=== PATIENT | female | born 2005 | race Caucasian/White ===

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

== ENCOUNTER 2024-12-06 03:38 | Emergency (ER) | payer OTHER, SELFPAY ==
--- NOTE | ~2024-12-06 | XR_ITS ---
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 TECHNIQUE: 2 views of the abdomen. FINDINGS: Bowel gas pain is normal/nonspecific. No dilated loops. Mild to moderate retained fecal material seen throughout the colon with sparing of the rectum. No abnormal soft tissue calcifications. No organomegaly. No large abdominal mass identified. No free intraperitoneal air. No air-fluid levels on the upright radiograph. There is a linear cylindrical foreign body overlying the mid pelvis, of uncertain etiology or significance. It appears to have small sideholes. This could potentially be external to the patient. Lung bases are clear. Osseous structures are normal. XR/XR acute abdomen series IMPRESSION: 1. No acute findings in the abdomen or pelvis. 2. There is a linear cylindrical foreign body overlying the mid pelvis, of uncertain etiology or significance. This could potentially be external to the patient. Recommend correlation. Electronically signed by: Snáchez Milton MD 12/06/2024 10:11 AM JASEN
[2024-12-06 03:44] VITALS: BP 114/68; PULSE 76; RESP 18; TEMP 36.7; O2SAT 99; BMI 24.9
[2024-12-06 04:03] LABS: MANUAL DIFF FLAG NO
[2024-12-06 04:07] LABS: Basophils Percent Auto 0.3 % (0-2); Eosinophils Absolute Auto 0.1 X10*3/uL (0.0-0.4); Eosinophils Percent Auto 1.6 % (0-4); Hematocrit 37.7 % (37.0-47.0); Hemoglobin 12.8 g/dl (12.0-16.0); Imm Gran Abs Auto 0.02 X10*3/uL (0.00-0.03); Imm Gran Pct Auto 0.3 % (0.0-0.4); Lymphocytes Absolute Auto 2.6 X10*3/uL (1.2-4.9); Lymphocytes Percent Auto 34.8 % (20-40); Mean Corpuscular Hemoglobin 30.6 pg (27.0-33.0); Mean Corpuscular Volume 90.2 fL (80.0-98.0); Mean Platelet Volume 9.2 fL (9.4-12.3); Monocytes Absolute Auto 0.5 X10*3/uL (0.1-1.2); Monocytes Percent Auto 6.5 % (2-11); Neutrophils Absolute Auto 4.3 x10*3/uL (2.0-8.3); Neutrophils Percent Auto 56.5 % (45-73); Platelet Count 225 X10*3/uL (160-400); Red Blood Count 4.18 X10*6/uL (4.20-5.50); White Blood Count 7.5 X10*3/uL (4.8-10.8)
[2024-12-06 04:08] LABS: Appearance Urine Clear; Color Urine Yellow; Glucose Urine UA Negative (Negative); Leukocyte Esterase Urine Negative (Negative); Nitrite Urine Negative (Negative); PH 5.5 (5.0-9.0); Specific Gravity - Urine >= 1.030 (1.005-1.025); Urine Blood Negative (Negative); Urine Ketones Negative (Negative); Urine Protein Negative (Neg-Trace)
[2024-12-06 04:12] LABS: UPreg QC Valid YES; Urine Pregnancy NEGATIVE (NEGATIVE)
[2024-12-06 04:28] VITALS: BP 104/61; PULSE 70; RESP 16; TEMP 36.7; O2SAT 99
[2024-12-06 04:28] LABS: Alanine Aminotransferase 7 U/L (0-31); Albumin Level 4.1 g/dL (3.5-5.0); Alkaline Phosphatase 89 U/L (39-117); Anion Gap 12 (12-20); Aspartate Amino Transferase 14 U/L (5-31); Bilirubin Direct 0.2 mg/dL (0.0-0.5); Bilirubin Total 0.7 mg/dL (0.0-1.0); Blood Urea Nitrogen 14 mg/dL (9-16); Carbon Dioxide 20 mmol/L (22-29); Chloride 112 mmol/L (96-108); Creatinine Clr Calc Pharmacy 108.7; Estimated Glomerular Filt Rate > 60; Glucose Random 110 mg/dL (60-115); Lipase 30 U/L (8-78); Potassium 3.8 mmol/L (3.3-5.1); Sodium 140 mmol/L (135-145); Total Protein 7.1 g/dL (6.5-8.0)
--- NOTE | 2024-12-06 04:30 | MHC.EDTECH ---
at this time this tech changed over the pt into a hospital gown and recievd VS
--- NOTE | 2024-12-06 05:50 | PC.NURSE ---
Addendum entered by Drew Conteh RN 12/06/24 05:52: pt now states pain started 2 days but became worse this past evening. see GI assessment note in head to toe Original Note: pt states current complaint is identical to episode 1 year ago. pt states she was seen in hospital and colonoscopy was recommended but she never went.
[2024-12-06 06:12] VITALS: BP 115/69; PULSE 64; RESP 18; TEMP 36.6; O2SAT 98
--- NOTE | 2024-12-06 07:07 | ED_ITS ---
HPI - General Adult General Chief complaint: Abdominal Pain Stated complaint: stomach pain, n/v Time Seen by Provider: 12/06/24 07:07 History of Present Illness ED Provider: Syeda ANGULO narrative: The patient ia a 19-year-old female who says that she developed abdominal pain yesterday evening that got worse at around 02:00 and was associated with nausea and vomiting at home. Mother drove her to the emergency room. She fell asleep while waiting to be seen. When I 1st went to see the patient she was quite sound asleep. I went back over an hour later and she was still sleeping. At that point I aroused her. She says she was still having some abdominal pain but her nausea was better. 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 She says that about a year ago she had a 1 day episode of abdominal pain and vomiting that resolved spontaneously and for which she did not seek medical care. She thinks that symptoms last night may be similar. No fever, sweats, chills. She indicates her midabdomen as the area where she feels her abdominal discomfort. Related Data Home Medications ?Medication ?Instructions ?Recorded ?Confirmed hydroxyzine pamoate 50 mg capsule 1 cap PO TID PRN Anxiety 01/25/22 01/25/22 Previous Rx's ?Medication ?Instructions ?Recorded fluconazole 150 mg tablet 150 mg PO Q3D 2 doses #2 tabs 11/03/23 metronidazole 500 mg tablet 500 mg PO BID 7 days #14 tabs 11/29/23 Allergies Allergy/AdvReac Type Severity Reaction Status Date / Time No Known Allergies Allergy Verified 12/06/24 03:46 [facility] Past Medical History Medical History Bipolar 1 disorder Surgical History Hx of abdominal surgery Social History Social History Alcohol intake: never Patient Tobacco Use Status: Never used Tobacco Substance Use Type: Marijuana Physical Exam ED Vital Signs: Vital Signs - 24 hr 12/06/24 03:44 12/06/24 04:28 12/06/24 06:12 Temperature 98.1 F 98.0 F 97.9 F Pulse Rate 76 70 64 Respiratory Rate 18 16 18 Blood Pressure 114/68 104/61 115/69 Pulse Oximetry 99 99 98 Oxygen Delivery Method Room Air Room Air Room Air 12/06/24 11:03 Temperature 98 F Pulse Rate 71 Respiratory Rate 16 Blood Pressure 111/56 L Pulse Oximetry 99 Oxygen Delivery Method Room Air BMI result Body Mass Index 24.9 Medications Administered Discontinued Medications Generic Name Dose Route Start Last Admin Trade Name Freq PRN Reason Stop Dose Admin Al Hydroxide/Mg Hydroxide 30 ml 12/06/24 09:31 12/06/24 09:48 Magnesium Hydrox/Alum Hydrox 30 Ml Oral.Susp PO 12/06/24 09:32 30 ml ONCE ONE Administration Medical Decision Making Lab Data 12/06/24 03:56 12/06/24 03:56 Labs: Lab Results 12/06/24 Range/Units 03:56 WBC 7.5 (4.8-10.8) X10*3/uL RBC 4.18 L (4.20-5.50) X10*6/uL Hgb 12.8 (12.0-16.0) g/dl Hct 37.7 (37.0-47.0) % MCV 90.2 (80.0-98.0) fL MCH 30.6 (27.0-33.0) pg MCHC 34.0 (31.0-35.0) g/dl RDW 12.0 (11.0-16.0) % Plt Count 225 (160-400) X10*3/uL MPV 9.2 L (9.4-12.3) fL Immature Gran % (Auto) 0.3 (0.0-0.4) % Neut % (Auto) 56.5 (45-73) % Lymph % (Auto) 34.8 (20-40) % [place] % (Auto) 6.5 (2-11) % Eos % (Auto) 1.6 (0-4) % Baso % (Auto) 0.3 (0-2) % Lymph # (Auto) 2.6 (1.2-4.9) X10*3/uL [place] # (Auto) 0.5 (0.1-1.2) X10*3/uL Eos # (Auto) 0.1 (0.0-0.4) X10*3/uL Baso # (Auto) 0.0 (0.0-0.2) X10*3/uL Abs Immat Gran (auto) 0.02 (0.00-0.03) X10*3/uL Absolute Neuts (auto) 4.3 (2.0-8.3) x10*3/uL Absolute Nucleated RBC 0.000 (0.0-0.012) X10*3/uL Nucleated RBC % (auto) 0.0 (0.0-0.2) /100WBC Sodium 140 (135-145) mmol/L Potassium 3.8 (3.3-5.1) mmol/L Chloride 112 H (96-108) mmol/L Carbon Dioxide 20 L (22-29) mmol/L Anion Gap 12 (12-20) BUN 14 (9-16) mg/dL Creatinine 0.77 (0.5-1.4) mg/dL Estim Creat Clear Calc 108.7 Estimated GFR > 60 Random Glucose 110 (60-115) mg/dL Calcium 9.0 (8.4-10.2) mg/dL Total Bilirubin 0.7 (0.0-1.0) mg/dL Direct Bilirubin 0.2 (0.0-0.5) mg/dL AST 14 (5-31) U/L ALT 7 (0-31) U/L Alkaline Phosphatase 89 (39-117) U/L C-Reactive Protein < 0.04 (< or = 0.50) mg/dL Total Protein 7.1 (6.5-8.0) g/dL Albumin 4.1 (3.5-5.0) g/dL Lipase 30 (8-78) U/L Urine Color Yellow Urine Appearance Clear Urine pH 5.5 (5.0-9.0) Ur Specific [place] >= 1.030 H (1.005-1.025) Urine Protein Negative (Neg-Trace) mg/dL Urine Glucose (UA) Negative (Negative) mg/dL Urine Ketones Negative (Negative) mg/dL Urine Blood Negative (Negative) Urine Nitrite Negative (Negative) Ur Leukocyte Esterase Negative (Negative) Urine Test NEGATIVE (NEGATIVE) Discharge Plan Discharge Clinical Impression: Abdominal pain with vomiting Patient Disposition: Home, Self-Care Additional Instructions: Your testing in the emergency room today is very reassuring. Please plan on keeping your appointment in December with your new doctor. Return to the emergency room if you feel significantly worse. Prescriptions: No Action hydroxyzine pamoate 50 mg capsule 1 cap PO TID PRN (Reason: Anxiety) fluconazole 150 mg tablet 150 mg PO Q3D Qty: 2 0RF metronidazole 500 mg tablet 500 mg PO BID 7 Days Qty: 14 0RF Interventions: ED Discharge Assessment Last Done: 12/06/24 11:03 Discharge Date/Time: 12/06/24 11:05 Print Language: Kosovan
[2024-12-06 07:47] LABS: C Reactive Protein < 0.04 mg/dL (< or = 0.50)
[2024-12-06] MEDS: Magnesium Hydrox/Alum Hydrox 30 ML ORAL.SUSP PO (09:48)
[2024-12-06 11:03] VITALS: BP 111/56; PULSE 71; RESP 16; TEMP 36.6; O2SAT 99
== END 2024-12-06 11:05 | disposition home or self-care (01) ==
PROVIDERS: Emergency Provider Emergency Medicine
DX: R10.9 Unspecified abdominal pain (principal); R11.2 Nausea with vomiting, unspecified
CPT/HCPCS: 36415; 74022; 80048; 80076; 81003; 81025; 83690; 85025; 86140; 99283; 99284

== ENCOUNTER → 2024-12-06 09:31 | Outpatient (BNV) | payer OTHER, SELFPAY | PROVIDERS: Emergency Provider Emergency Medicine; Visit Provider Radiology Diagnostic Radiology | DX: R10.9 Unspecified abdominal pain (principal); R11.10 Vomiting, unspecified | CPT/HCPCS: 74022 ==

== ENCOUNTER 2025-06-07 23:01 | Emergency (ER) | payer OTHER, SELFPAY ==
--- NOTE | ~2025-06-07 | CT_ITS ---
CLINICAL HISTORY: LLQ, L CVT, R O stone, ovar cyst, pyelonephritis CT abdomen and pelvis with contrast Indication: Left lower quadrant pain Comparison: None provided Findings: No consolidation or effusion. There is pectus excavatum morphology of the chest. Hepatic parenchyma is normal. Gallbladder is partially distended. Spleen is normal. Stomach is partially distended pancreas is normal. Adrenal glands are normal. The right kidney is normal. No nephrolithiasis or hydroureter. The left kidney is normal. There is a dilated extrarenal pelvis without evidence of obstructing ureteral lithiasis. No hydroureter or evidence of ureteral lithiasis. The ureterovesicular junctions are normal. Noncontrast opacified small bowel is normal. Large bowel demonstrates moderate stool burden. The retrocecal appendix is gas-filled. No focal bowel wall thickening. Scattered sigmoid diverticuli without diverticulitis. Bladder wall is not thickened. There is fat stranding adjacent to the cervix. A small amount of free fluid is present in the pelvis. There is a right adnexal ovarian cyst without adjacent fat stranding.. No adenopathy. Uterus is normal. No bowel obstruction, pneumoperitoneum, or pneumatosis. No acute fracture. IMPRESSION: Dilated left renal pelvis without renal lithiasis, ureterolithiasis or hydroureter. Pelvic fat stranding adjacent to the cervix is nonspecific but may be seen with inflammation or infection. Clinical correlation may be obtained. This document has been electronically signed by: Timo Ramsay III, MD PHD on 06/08/2025 03:14:06
[2025-06-07 23:05] VITALS: BP 114/71; PULSE 70; RESP 20; TEMP 36.6; O2SAT 99; BMI 24.9
[2025-06-08 00:05] LABS: MANUAL DIFF FLAG NO
[2025-06-08 00:06] LABS: Hematocrit 40.5 % (37.0-47.0); Hemoglobin 13.8 g/dl (12.0-16.0); Imm Gran Abs Auto 0.05 X10*3/uL (0.00-0.03); Imm Gran Pct Auto 0.4 % (0.0-0.4); Lymphocytes Absolute Auto 1.3 X10*3/uL (1.2-4.9); Mean Corpuscular HGB Conc 34.1 g/dl (31.0-35.0); Mean Corpuscular Hemoglobin 30.5 pg (27.0-33.0); Mean Corpuscular Volume 89.6 fL (80.0-98.0); NRBC Abs Auto 0.000 X10*3/uL (0.0-0.012); NRBC Pct Auto 0.0 /100WBC (0.0-0.2); Platelet Count 215 X10*3/uL (160-400); Red Blood Count 4.52 X10*6/uL (4.20-5.50); White Blood Count 13.3 X10*3/uL (4.8-10.8)
[2025-06-08 00:24] LABS: Alanine Aminotransferase 11 U/L (0-31); Albumin Level 5.1 g/dL (3.5-5.0); Alkaline Phosphatase 96 U/L (39-117); Anion Gap 16 (12-20); Aspartate Amino Transferase 19 U/L (5-31); Blood Urea Nitrogen 8 mg/dL (9-16); Calcium 9.3 mg/dL (8.4-10.2); Carbon Dioxide 22 mmol/L (22-29); Chloride 108 mmol/L (96-108); Creatinine Clr Calc Pharmacy 95.1; Estimated Glomerular Filt Rate > 60; Lipase 23 U/L (8-78); Potassium 3.9 mmol/L (3.3-5.1); Sodium 142 mmol/L (135-145); Total Protein 7.8 g/dL (6.5-8.0)
[2025-06-08 00:50] LABS: Appearance Urine Cloudy; Glucose Urine UA Negative (Negative); PH 7.0 (5.0-9.0); Specific Gravity - Urine 1.010 (1.005-1.025); UMIC TRIGGER UACC YES
[2025-06-08 00:51] LABS: UPreg QC Valid YES
--- NOTE | 2025-06-08 00:51 | ED.ABDPAIN ---
HPI - Abdominal Pain General Chief Complaint: Abdominal Pain Stated Complaint: abd pain Time Seen by Provider: 06/08/25 00:46 Source: patient Mode of arrival: ambulatory Limitations: no limitations History of Present Illness ED Provider: Dr. Pernell Brothers HPI narrative: 19-year-old female no significant past medical history who presents emergency department for evaluation of gradual onset of left lower abdomen and left flank pain. Patient states the pain started around 11:00 hours yesterday. She states that initially she thought she was getting her. Since the pain felt like menstrual cramps. Eventually the pain became more severe. She describes it as a shooting pain which is constant but waxes and wanes in intensity in in his 02/27 to 08/29. She states she felt hot but did not think that she had a fever. She denied chills. Patient had nausea with no vomiting. She denied frequency, urgency or dysuria. Related Data Home Medications ?Medication ?Instructions ?Recorded ?Confirmed hydroxyzine pamoate 50 mg capsule 1 cap PO TID PRN Anxiety 01/25/22 01/25/22 Previous Rx's ?Medication ?Instructions ?Recorded fluconazole 150 mg tablet 150 mg PO Q3D 2 doses #2 tabs 11/03/23 metronidazole 500 mg tablet 500 mg PO BID 7 days #14 tabs 11/29/23 cefuroxime axetil 250 mg tablet 250 mg PO Q12H 7 days #14 tabs 06/08/25 morphine 15 mg immediate release 15 mg PO Q6H PRN pain #10 tabs 06/08/25 tablet ondansetron 4 mg disintegrating 4 mg PO Q6-8H PRN nausea and 06/08/25 tablet vomiting #14 tabs oxycodone 5 mg tablet 5 mg PO Q8H PRN severe pain (scale 06/08/25 score 7-10) #6 tabs Allergies Allergy/AdvReac Type Severity Reaction Status Date / Time No Known Allergies Allergy Verified 06/07/25 23:06 Review of Systems Review of Systems Yes all other systems are reviewed and are negative [facility] Past Medical History [facility] Narrative: Surgical history: 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 She also has had a miscarriage 2 years prior. Social history: She denies tobacco use. She had 2 mixed drinks yesterday. She smoked marijuana yesterday. She denies other drug use. Medical History Bipolar 1 disorder Surgical History Hx of abdominal surgery Social History Social History Alcohol intake: current Patient Tobacco Use Status: Never used Tobacco Smoked in Last 30 Days: No Use of substances other than those prescribed or required for medical reasons: Yes Substance Use Type: Marijuana Advance Directives: No Advance Directives Information Provided: Yes Patient : No Physical Exam ED Vital Signs: Vital Signs - 24 hr 06/07/25 23:05 06/08/25 03:53 06/08/25 03:54 Temperature 97.8 F 98.6 F 98.6 F Pulse Rate 70 65 65 Respiratory Rate 20 14 14 Blood Pressure 114/71 103/52 L 103/52 L Pulse Oximetry 99 99 99 Oxygen Delivery Method Room Air Room Air Room Air BMI result Body Mass Index 24.9 Exam: General: Awake, alert in no distress Head: Normocephalic, atraumatic EENT: PERRL, Lids normal, sclera normal, conjunctiva normal, nose normal , ears normal, throat without erythema or exudates Neck: Supple, no adenopathy Lung: breath sounds symmetric, no wheezing, rales or rhonchi Chest: symmetric movement, nontender Heart: regular rate and rhythm, normal S1, S2 no murmurs or rubs Abdomen: soft, moderate left lower quadrant and left suprapubic tenderness, nondistended, normal bowel sounds Back: no vertebral tenderness, moderate left CVA tenderness, no right CVA tenderness Extremities: no deformities, moves all extremities symmetrically Neuro: Awake, alert, oriented, normal speech, cranial nerves intact, moves all extremities symmetrically Psych: Pleasant, cooperative Course Course Course Narrative: 06/08/25 12:45 IRENE Alston: Received call from patient's boyfriend stating that patient's pharmacy does not have the prescribed morphine available. Upon review of the EMR, the morphine prescribed by Dr. Brothers was rejected by the pharmacy. There is a current shortage of morphine available to the local pharmacies. Prescription for oxycodone sent. Medical Decision Making Medical Decision Making MDM Narrative: 19-year-old female no significant past medical history who presents emergency department for evaluation of gradual onset of left lower abdomen and left flank pain. Patient states the pain started around 11:00 hours yesterday. She states that initially she thought she was getting her. Since the pain felt like menstrual cramps. Eventually the pain became more severe. She describes it as a shooting pain which is constant but waxes and wanes in intensity in in his 10 to 10/10. She states she felt hot but did not think that she had a fever. She denied chills. Patient had nausea with no vomiting. She denied frequency, urgency or dysuria. Vital signs were normal. Exam revealed left lower quadrant, left suprapubic moderate tenderness and moderate left CVA tenderness. Differential diagnosis: ?Includes but is not limited to ureteral stone, renal colic, urinary tract infection, pyelonephritis, ovarian cyst, ruptured ovarian cyst, anemia, electrolyte abnormalities Course: 01:10 My interpretation patient's laboratory evaluation is as follows: Elevated white blood count 85900. Elevated bilirubin 1.2. LFTs were normal. Lipase was normal. Urine test negative. Urinalysis positive for protein, blood, nitrates, leukocyte esterase. Microscopic revealed greater than 20 RBCs, greater than 50 WBCs, 0-2 squamous cells, 3+ bacteria. Urine test was negative. The patient's urinalysis is concerning for urinary tract infection and her exam concerning for possible pyelonephritis. Given the severity of her pain I will obtain a CT scan of the abdomen pelvis to look for pyelonephritis versus kidney stone. I ordered normal saline IV x1 L, Zofran 4 mg IV and Toradol 15 mg IV. UTI we treated with ceftriaxone 1 g IV. 03:31 Patient got significant improvement of her pain with the above treatment. CT scan of the abdomen pelvis revealed dilated left renal pelvis without renal lithiasis, ureterolithiasis or hydroureter. Pelvic fat stranding adjacent to the cervix is nonspecific but may be seen with inflammation or infection. Given her significantly positive urinalysis is suspect that the patient has left pyelonephritis and I did discuss this with the patient and her significant other. Patient was given prescriptions for cefuroxime 250 mg q.12 hours x7 days. She was advised to take Tylenol and ibuprofen for pain and for pain not relieved by these medications she was prescribed morphine 15 mg every 6 hours. She was given printed and verbal instructions and discharged home. Admission/Observation Consideration of admission/observation: Escalation of care including admission/observation considered (Yes) Lab Data MDM Lab Attestation statement: I reviewed the patient's lab results. 06/07/25 23:53 06/07/25 23:53 Labs: Lab Results 06/07/25 06/08/25 06/08/25 Range/Units 23:53 00:27 01:37 WBC 13.3 H (4.8-10.8) X10*3/uL RBC 4.52 (4.20-5.50) X10*6/uL Hgb 13.8 (12.0-16.0) g/dl Hct 40.5 (37.0-47.0) % MCV 89.6 (80.0-98.0) fL MCH 30.5 (27.0-33.0) pg MCHC 34.1 (31.0-35.0) g/dl RDW 12.3 (11.0-16.0) % Plt Count 215 (160-400) X10*3/uL MPV 9.6 (9.4-12.3) fL Immature Gran % (Auto) 0.4 (0.0-0.4) % Neut % (Auto) 84.0 H (45-73) % Lymph % (Auto) 10.0 L (20-40) % [place] % (Auto) 4.9 (2-11) % Eos % (Auto) 0.4 (0-4) % Baso % (Auto) 0.3 (0-2) % Lymph # (Auto) 1.3 (1.2-4.9) X10*3/uL [place] # (Auto) 0.7 (0.1-1.2) X10*3/uL Eos # (Auto) 0.1 (0.0-0.4) X10*3/uL Baso # (Auto) 0.0 (0.0-0.2) X10*3/uL Abs Immat Gran (auto) 0.05 H (0.00-0.03) X10*3/uL Absolute Neuts (auto) 11.2 H (2.0-8.3) x10*3/uL Absolute Nucleated RBC 0.000 (0.0-0.012) X10*3/uL Nucleated RBC % (auto) 0.0 (0.0-0.2) /100WBC Sodium 142 (135-145) mmol/L Potassium 3.9 (3.3-5.1) mmol/L Chloride 108 (96-108) mmol/L Carbon Dioxide 22 (22-29) mmol/L Anion Gap 16 (12-20) BUN 8 L (9-16) mg/dL Creatinine 0.88 (0.5-1.4) mg/dL Estim Creat Clear Calc 95.1 Estimated GFR > 60 Random Glucose 80 (60-115) mg/dL Lactic Acid 1.4 (0.5-2.0) mmol/L Calcium 9.3 (8.4-10.2) mg/dL Total Bilirubin 1.2 H (0.0-1.0) mg/dL AST 19 (5-31) U/L ALT 11 (0-31) U/L Alkaline Phosphatase 96 (39-117) U/L Total Protein 7.8 (6.5-8.0) g/dL Albumin 5.1 H (3.5-5.0) g/dL Lipase 23 (8-78) U/L Urine Color Yellow Urine Appearance Cloudy Urine pH 7.0 (5.0-9.0) Ur Specific [place] 1.010 (1.005-1.025) Urine Protein 100 (2+) H (Neg-Trace) mg/dL Urine Glucose (UA) Negative (Negative) mg/dL Urine Ketones Negative (Negative) mg/dL Urine Blood Large (3+) H (Negative) Urine Nitrite Positive H (Negative) Ur Leukocyte Esterase Large (3+) H (Negative) Urine RBC >20 H (0-2) /HPF Urine WBC >50 H (0-5) /HPF Ur Squamous Epith Cells 0-2 (0-2) /HPF Urine Bacteria 3+ (None Seen) Hyaline Casts 0-2 (0-2) /LPF Urine Test NEGATIVE (NEGATIVE) Radiology Impression Discussion of test interpretation with radiology: I have reviewed the radiologist's reading. Radiologist Impression: CT abdomen and pelvis with contrast Comparison: None provided IMPRESSION: Dilated left renal pelvis without renal lithiasis, ureterolithiasis or hydroureter. Pelvic fat stranding adjacent to the cervix is nonspecific but may be seen with inflammation or infection. Clinical correlation may be obtained. This document has been electronically signed by: Timo Ramsay III, MD PHD on 06/08/2025 03:14:06 Independent Historian Clinical information obtained from an independent historian. History obtained from or confirmed by: Other Prescription Management I considered prescription management with: Pain Medication (Morphine) and Antibiotic (Cefuroxime) Medications Administered Discontinued Medications Generic Name Dose Route Start Last Admin Trade Name Freq PRN Reason Stop Dose Admin Ceftriaxone Sodium 1 gm 06/08/25 01:07 06/08/25 01:50 Ceftriaxone Sodium 1 Gm Vial IVPUSH 06/08/25 01:08 1 gm ONCE ONE Administration Sodium Chloride 1,000 mls @ 999 mls/hr 06/08/25 01:14 06/08/25 02:53 Ns IV 06/08/25 02:14 Infused .Q1H1M STA Infusion Ibuprofen 600 mg 06/08/25 00:25 06/08/25 00:33 Ibuprofen 600 Mg Tablet PO 06/08/25 00:26 600 mg ONCE ONE Administration Iohexol 85 ml 06/08/25 01:46 06/08/25 01:47 Iohexol 350 Mg/Ml 100 Ml Infus..Btl IV 06/08/25 01:47 85 ml ONCE ONE Administration Ketorolac Tromethamine 15 mg 06/08/25 01:00 06/08/25 01:10 Ketorolac Tromethamine 15 Mg/Ml Vial IVPUSH 06/08/25 01:01 15 mg ONCE STA Administration Midazolam HCl 2 mg 06/08/25 01:03 06/08/25 01:10 Midazolam Hcl 2 Mg/2 Ml Vial IVPUSH 06/08/25 01:04 2 mg ONCE ONE Administration Ondansetron HCl 4 mg 06/08/25 01:00 06/08/25 01:10 Ondansetron Hcl 4 Mg/2 Ml Vial IVPUSH 06/08/25 01:01 4 mg ONCE ONE Administration Discharge Plan Discharge Clinical Impression: Pyelonephritis of left kidney Patient Disposition: Home, Self-Care Instructions: Kidney Infection (ED) Additional Instructions: Your blood work [place] [address]. Your comprehensive metabolic panel was normal. Your lipase which is a marker of pancreatitis was normal. Your urine tests revealed a significant number of white blood cells, red blood cells and bacteria in your urine which is consistent with a urinary tract infection. The CT scan of your abdomen pelvis with IV contrast did reveal swelling of your kidney but no kidney stones. Given your physical exam, laboratory and CT scan findings, I suspect that you have a left kidney infection in his the cause of your symptoms. You were treated here in the emergency department with ceftriaxone 1 g IV-this has an antibiotic that will last 24 hours. You also received Zofran 4 mg IV for nausea. I am prescribing an antibiotic, cefuroxime 250 mg every 12 hours x7 days. Take ibuprofen 200 mg pills, 2 pills every 6 hours as needed for pain. Take Tylenol (acetaminophen) 2 pills every 6 hours as needed for pain. For pain not relieved by ibuprofen or Tylenol take morphine 15 mg pills, 1 pill every 6 hours as needed for pain. This medication will make you sleepy, do not drive or work while taking this medication. Morphine is a narcotic medication and can be addicting. If you are concerned about addiction you can ask the pharmacist for less pills or do not get this prescription filled. Take Zofran ODT 4 mg pills, 1 pill dissolved in your mouth every 8 hours as needed for nausea and vomiting. Follow-up with your doctor in 2 days. Please return to the emergency department if your symptoms get worse or if you develop any symptoms that are concerning to you. Prescriptions: New cefuroxime axetil 250 mg tablet 250 mg PO Q12H 7 Days Qty: 14 0RF morphine 15 mg tablet 15 mg PO Q6H PRN (Reason: pain) Qty: 10 0RF Rx Instructions: Partial Fill upon patient request. ondansetron 4 mg tablet,disintegrating 4 mg PO Q6-8H PRN (Reason: nausea and vomiting) Qty: 14 0RF oxycodone 5 mg tablet 5 mg PO Q8H PRN (Reason: severe pain (scale score 7-10)) Qty: 6 0RF Rx Instructions: Partial Fill upon patient request. No Action hydroxyzine pamoate 50 mg capsule 1 cap PO TID PRN (Reason: Anxiety) fluconazole 150 mg tablet 150 mg PO Q3D Qty: 2 0RF metronidazole 500 mg tablet 500 mg PO BID 7 Days Qty: 14 0RF Interventions: ED Discharge Assessment Last Done: 06/08/25 03:54 Discharge Date/Time: 06/08/25 03:55 Print Language: American
[2025-06-08 00:55] LABS: UACC Culture Trigger YES
[2025-06-08] MEDS: iohexoL 350 MG/ML 100 ML INFUS..BTL 85 ML IV (01:47)
[2025-06-08 03:53] VITALS: BP 103/52; PULSE 65; RESP 14; TEMP 37; O2SAT 99
[2025-06-08 03:54] VITALS: BP 103/52; PULSE 65; RESP 14; TEMP 37; O2SAT 99
== END 2025-06-08 03:55 | disposition home or self-care (01) ==
PROVIDERS: Emergency Provider Emergency Medicine Emergency Medical Services
DX: N12 Tubulo-interstitial nephritis, not specified as acute or chronic (principal); R10.32 Left lower quadrant pain; Z79.899 Other long term (current) drug therapy
CPT/HCPCS: 36415; 74177; 80053; 81001; 81025; 83605; 83690; 85025; 87040; 87086; 87088; 87186; 96361; 96374; 96375; 99284; J0696; J1885; J2250; J2405; Q9967

== ENCOUNTER → 2025-06-08 01:12 | Outpatient (BNV) | payer OTHER, SELFPAY | PROVIDERS: Emergency Provider Emergency Medicine Emergency Medical Services; Visit Provider Radiology Diagnostic Radiology | DX: N28.89 Other specified disorders of kidney and ureter (principal) | CPT/HCPCS: 74177 ==

== ENCOUNTER 2025-08-09 19:53 | Emergency (ER) | payer OTHER, SELFPAY ==
--- NOTE | ~2025-08-09 | XR_ITS ---
CLINICAL HISTORY: twisted knee Left knee, 4 views COMPARISON: None provided FINDINGS: No acute fracture. No dislocation. No effusion. Unremarkable soft tissues. IMPRESSION: No acute findings. This document has been electronically signed by: Qamar Doran MD on 08/09/2025 21:07:48
[2025-08-09 19:59] VITALS: BP 125/57; PULSE 79; RESP 16; TEMP 36.7; O2SAT 98; BMI 24.9
--- NOTE | 2025-08-09 21:03 | ED_ITS ---
HPI - Extremity Injury (Lower) General Chief Complaint: Extremity Injury, Lower Stated Complaint: left leg pain, heard a snap Time Seen by Provider: 08/09/25 20:43 History of Present Illness HPI Narrative: Patient is a 20-year-old female turned the wrong way subsequently fell on her left knee. Complaining of pain localized to the medial aspect of the knee and felt a pop there. Not on blood thinners denies any head injury no nausea no vomiting unable to bear weight came to the ED. there was no head injury there is no neck injury there is no difficulty moving her arms Related Data Home Medications ?Medication ?Instructions ?Recorded ?Confirmed hydroxyzine pamoate 50 mg capsule 1 cap PO TID PRN Anx iety 01/25/22 01/25/22 Previous Rx's ?Medication ?Instructions ?Recorded fluconazole 150 mg tablet 150 mg PO Q3D 2 doses #2 tab s 11/03/23 metronidazole 500 mg tablet 500 mg PO BID 7 days #14 t abs 11/29/23 cefuroxime axetil 250 mg tablet 250 mg PO Q12H 7 days #14 tabs 06/08/25 morphine 15 mg immediate release 15 mg PO Q6H PRN pain #10 tabs 06/08/25 tablet ondansetron 4 mg disintegrating 4 mg PO Q6-8H PRN naus ea and 06/08/25 tablet vomiting #14 tabs oxycodone 5 mg tablet 5 mg PO Q8H PRN severe pain (scale 06/08/25 score 7-10) #6 tabs ibuprofen 400 mg tablet 400 mg PO Q6H PRN pain #20 t abs 08/09/25 Allergies Allergy/AdvReac Type Severity Reaction Status Date / Time No Known Allergies Allergy Verified 08/09/25 20:02 Review of Systems Review of Systems: No chest pain or shortness breath no systemic complaints Yes all other systems are reviewed and are negative [facility] Past Medical History Attestation statement: The following information was validated with the patient. Medical History Bipolar 1 disorder Surgical History Hx of abdominal surgery Social History Social History Alcohol intake: current Patient Tobacco Use Status: Never used Tobacco Substance Use Type: Marijuana Advance Directives: No Advance Directives Information Provided: No Do you have a plan to hurt others: No Plan Physical Exam Exam: Exam: Appearance: Alert. Oriented X3. No acute distress. Eyes: Pupils equal, round and reactive to light. ENT: Pharynx normal. Neck: Normal inspection. Neck supple. No lymph nodes noted. No crepitus CVS: Normal heart rate and rhythm. Pulses normal. Normal S1 and S2 Respiratory: No respiratory distress. Breath sounds normal. No Wheezing. No rales Abdomen: Soft and nontender. No rigidity. No distention. good BS x4 Skin: Skin warm and dry. Normal skin color. Normal skin turgor. Extremities: No lower extremity edema. Examination of the left knee showed tenderness on palpation at the medial aspect of the left knee. There is no patellar tenderness there is no tenderness on palpation of the lateral collateral ligament. Negative drawers test. Negative Homans sign no calf tenderness. More distally there is no pain on palpation of the ankle there is good range of motion of the ankle the foot the hip. Range of motion of the knee somewhat limited secondary to pain. There is no gross joint effusion noted. Skin was intact. Distal pulses were 2+ at dorsalis pedis and posterior tibialis. Neuro: Oriented X 3. No motor deficit. No sensory deficit. Moving all extermities. No slurred speech Vital Signs: Vital Signs: Last Vital Signs Temp 98.0 F 08/09/25 19:59 Pulse 79 08/09/25 19:59 Resp 16 08/09/25 19:59 BP 125/57 L 08/09/25 19:59 Pulse Ox 98 08/09/25 19:59 O2 Del Method Room Air 08/09/25 19:59 BMI result Body Mass Index 24.9 Medical Decision Making Medical Decision Making MDM Narrative: X-ray of the knee was done. My interpretation patient's x-ray showed no acute fracture. Pain happened after a slight turn twists to the knee. Question internal derangement of the knee. No acute fracture noted on x-ray I reviewed radiology's reading which showed the same will have patient take Motrin follow- up with orthopedics on an outpatient basis Ricki bandage crutches Differential Diagnosis Differential Diagnoses: The differential diagnosis associated with the presentation includes Fracture, internal derangement of the knee Admission/Observation Consideration of admission/observation: Escalation of care including admission/observation considered Pain is controlled no distress will discharge home Lab Data MDM Lab Attestation statement: I reviewed the patient's lab results. Independent Interpretation I performed an independent interpretation of an: Plain X-Ray (X-ray of the knee was grossly negative for any acute evidence of fracture) Radiology Impression Discussion of test interpretation with radiology: I have reviewed the radiologist's reading. Prescription Management I considered prescription management with: Pain Medication Social Determinants Patient?s care significantly limited by Social Determinants of Health including: Problems related to primary support group Discharge Plan Discharge Clinical Impression: Internal derangement of knee Patient Disposition: Home, Self-Care Instructions: Knee Pain (ED) Prescriptions: New ibuprofen 400 mg tablet 400 mg PO Q6H PRN (Reason: pain) Qty: 20 0RF No Action hydroxyzine pamoate 50 mg capsule 1 cap PO TID PRN (Reason: Anxiety) cefuroxime axetil 250 mg tablet 250 mg PO Q12H 7 Days Qty: 14 0RF morphine 15 mg tablet 15 mg PO Q6H PRN (Reason: pain) Qty: 10 0RF Rx Instructions: Partial Fill upon patient request. ondansetron 4 mg tablet,disintegrating 4 mg PO Q6-8H PRN (Reason: nausea and vomiting) Qty: 14 0RF oxycodone 5 mg tablet 5 mg PO Q8H PRN (Reason: severe pain (scale score 7-10)) Qty: 6 0RF Rx Instructions: Partial Fill upon patient request. fluconazole 150 mg tablet 150 mg PO Q3D Qty: 2 0RF metronidazole 500 mg tablet 500 mg PO BID 7 Days Qty: 14 0RF Referrals: Jesse Hickey MD [Physician, Orthopedics] - 08/11/25 Print Language: Yemeni
== END 2025-08-09 23:11 | disposition home or self-care (01) ==
PROVIDERS: Emergency Provider Emergency Medicine Emergency Medical Services
DX: M23.92 Unspecified internal derangement of left knee (principal)
CPT/HCPCS: 73562; 99282; 99283

== ENCOUNTER → 2025-08-09 20:10 | Outpatient (BNV) | payer OTHER, SELFPAY | PROVIDERS: Emergency Provider Emergency Medicine Emergency Medical Services; Visit Provider Radiology Diagnostic Radiology | DX: S89.92XA Unspecified injury of left lower leg, initial encounter (principal) | CPT/HCPCS: 73562 ==

== ENCOUNTER 2025-09-27 02:09 | Emergency (ER) | payer OTHER, SELFPAY ==
[2025-09-27 02:16] VITALS: BP 127/75; PULSE 56; RESP 20; TEMP 36.4; O2SAT 100; BMI 25.7
--- NOTE | 2025-09-27 02:52 | ED.GENADULT ---
HPI - General Adult General Chief complaint: Nausea/Vomiting/Diarrhea Stated complaint: vomitting Time Seen by Provider: 09/27/25 02:33 Source: patient Mode of arrival: ambulatory Limitations: altered mental status (Ethanol Intoxication) History of Present Illness ED Provider: Sánchez LIMA HPI narrative: The patient is a 20-year-old female presenting to the ED for evaluation of alcohol intoxication with subsequent vomiting. The patient appears clinically intoxicated and unable to provide a reliable HPI, majority of HPI obtained from patient's boyfriend and cousin who were present in the ED were and were also home with the patient while she was drinking. The patient's boyfriend and cousin advise the patient does not drink daily or regularly drank in excess, however tonight did drink approximately 10 alcoholic beverages over the course of 4-5 hours. The patient's cousin and boyfriend deny any history of recreational drug use other than marijuana. The patient reportedly was only drinking at home, no chance of her drank being manipulated by a 3rd constitution party. The patient's boyfriend and cousin deny any concern for other substance use. The patient reportedly was without complaint while drinking, but then suddenly began complaining of nausea, and subsequently vomited 8-10 times. The vomiting was witnessed by both the patient's because it and boyfriend, who deny any hematemesis. Related Data Home Medications ?Medication ?Instructions ?Recorded ?Confirmed hydroxyzine pamoate 50 mg capsule 1 cap PO TID PRN Anxiety 01/25/22 01/25/22 Previous Rx's ?Medication ?Instructions ?Recorded fluconazole 150 mg tablet 150 mg PO Q3D 2 doses #2 tabs 11/03/23 metronidazole 500 mg tablet 500 mg PO BID 7 days #14 tabs 11/29/23 cefuroxime axetil 250 mg tablet 250 mg PO Q12H 7 days #14 tabs 06/08/25 morphine 15 mg immediate release 15 mg PO Q6H PRN pain #10 tabs 06/08/25 tablet ondansetron 4 mg disintegrating 4 mg PO Q6-8H PRN nausea and 06/08/25 tablet vomiting #14 tabs oxycodone 5 mg tablet 5 mg PO Q8H PRN severe pain (scale 06/08/25 score 7-10) #6 tabs ibuprofen 400 mg tablet 400 mg PO Q6H PRN pain #20 tabs 08/09/25 Allergies Allergy/AdvReac Type Severity Reaction Status Date / Time No Known Allergies Allergy Verified 09/27/25 02:22 Review of Systems Review of Systems: Yes all other systems are reviewed and are negative PMFSH Past Medical History Medical History Bipolar 1 disorder Surgical History Hx of abdominal surgery Social History Social History Alcohol intake: current Patient Tobacco Use Status: Never used Tobacco Substance Use Type: Marijuana Advance Directives: No Advance Directives Information Provided: No Physical Exam ED Vital Signs: Vital Signs - 24 hr 09/27/25 02:16 09/27/25 04:00 Temperature 97.5 F 98.9 F Pulse Rate 56 65 Respiratory Rate 20 16 Blood Pressure 127/75 105/41 L Pulse Oximetry 100 98 Oxygen Delivery Method Room Air Room Air BMI result Body Mass Index 25.7 CONSTITUTIONAL: The patient appears clinically intoxicated, otherwise well nourished and in no acute distress. Vital signs as documented. HEAD: Atraumatic, normocephalic. EYES: Pupils equal, no constriction, conjunctiva clear, no exudate. ENT: Nares patent, no discharge. Airway patent, no audible stridor, visible mucosa is pink and moist without noted lesions. NECK: Trachea is midline, no obvious masses or gross abnormalities. CHEST: Symmetric movement, normal appearance. LUNGS: LS present and CTAB, no w/r/r. Non-labored work of breathing. CARDIAC: Regular Rhythm, S1/S2 appreciated, no murmurs, rubs or gallops. ABDOMEN: Abdomen soft and non-tender x4 quadrants, no palpable masses or organomegaly. : Deferred. EXTREMITIES: Normal tone, moves all extremities spontaneously without reported pain. No obvious acute injury or deformity noted. NEURO: Alert to painful stimuli, patient follows most instructions during exam however is unable or unwilling to cooperate with the remainder of neurologic exam. SKIN: Cool, dry, color appropriate, normal turgor. No rashes noted. Medications Administered Discontinued Medications Generic Name Dose Route Start Last Admin Trade Name Freq PRN Reason Stop Dose Admin Sodium Chloride 1,000 mls @ 999 mls/hr 09/27/25 03:15 09/27/25 04:34 Ns IV 09/27/25 05:15 999 mls/hr .Q1H1M DAYANA Administration Ketorolac Tromethamine 15 mg 09/27/25 03:02 09/27/25 03:20 Ketorolac Tromethamine 15 Mg/Ml Vial IVPUSH 09/27/25 03:03 15 mg ONCE ONE Administration Ondansetron HCl 4 mg 09/27/25 03:02 09/27/25 03:20 Ondansetron Hcl 4 Mg/2 Ml Vial IVPUSH 09/27/25 03:03 4 mg ONCE ONE Administration Medical Decision Making Medical Decision Making MDM Narrative: 2:54 AM 09/27/2025 (Mary LIMA): The patient is a 20-year-old female presenting to the ED for evaluation of alcohol intoxication with subsequent vomiting. The patient appears clinically intoxicated and unable to provide a reliable HPI, majority of HPI obtained from patient's boyfriend and cousin who were present in the ED were and were also home with the patient while she was drinking. The patient's boyfriend and cousin advise the patient does not drink daily or regularly drank in excess, however tonight did drink approximately 10 alcoholic beverages over the course of 4-5 hours. The patient's cousin and boyfriend deny any history of recreational drug use other than marijuana. The patient reportedly was only drinking at home, no chance of her drank being manipulated by a 3rd constitution party. The patient's boyfriend and cousin deny any concern for other substance use. The patient reportedly was without complaint while drinking, but then suddenly began complaining of nausea, and subsequently vomited 8-10 times. The vomiting was witnessed by both the patient's because it and boyfriend, who deny any hematemesis. At time of this provider's evaluation the patient is sleeping comfortably, in no acute distress, however is very difficult to arouse, patient does become interactive, and follows directions after waking with painful stimuli (sternal rub). On exam patient appears clinically intoxicated, no pinpoint pupils, adventitious lung sounds, abdominal tenderness, or other acute findings. The patient appears intoxicated by alcohol, no concern for other acute process. We will obtain basic laboratory workup, ethanol, and UDS. Patient will be treated with IV fluid hydration, Zofran, and Toradol. 5:51 AM 09/27/2025 (Mary LIMA): Patient's laboratory evaluation shows no leukocytosis, anemia, electrolyte abnormality, or CHLOÉ. LFTs are unremarkable. The patient's ethanol level is 164. Upon reassessment the patient is sleeping comfortably, in no acute distress, IV fluids are continuing. The patient will be signed out to my colleague Dr. John Brothers for sober re-evaluation. 06:22 Date: 09/27/25 Provider: Pernell Brothers MD The patient patient woke up and was able to walk to the bathroom without any difficulty. The patient's boyfriend and cousin are in the room with her and they are willing to take the patient home at this time therefore the patient was discharged. She was given printed and verbal instructions and discharged home. Differential Diagnosis Differential Diagnoses: The differential diagnosis associated with the presentation includes Admission/Observation Consideration of admission/observation: Escalation of care including admission/observation considered (Yes) Lab Data MDM Lab Attestation statement: I reviewed the patient's lab results. 09/27/25 03:17 09/27/25 03:17 Labs: Lab Results 09/27/25 Range/Units 03:17 WBC 5.0 (4.8-10.8) X10*3/uL RBC 4.13 L (4.20-5.50) X10*6/uL Hgb 12.5 (12.0-16.0) g/dl Hct 36.5 L (37.0-47.0) % MCV 88.4 (80.0-98.0) fL MCH 30.3 (27.0-33.0) pg MCHC 34.2 (31.0-35.0) g/dl RDW 12.1 (11.0-16.0) % Plt Count 196 (160-400) X10*3/uL MPV 9.4 (9.4-12.3) fL Immature Gran % (Auto) 0.2 (0.0-0.4) % Neut % (Auto) 56.4 (45-73) % Lymph % (Auto) 34.9 (20-40) % [place] % (Auto) 6.7 (2-11) % Eos % (Auto) 1.4 (0-4) % Baso % (Auto) 0.4 (0-2) % Lymph # (Auto) 1.7 (1.2-4.9) X10*3/uL [place] # (Auto) 0.3 (0.1-1.2) X10*3/uL Eos # (Auto) 0.1 (0.0-0.4) X10*3/uL Baso # (Auto) 0.0 (0.0-0.2) X10*3/uL Abs Immat Gran (auto) 0.01 (0.00-0.03) X10*3/uL Absolute Neuts (auto) 2.8 (2.0-8.3) x10*3/uL Absolute Nucleated RBC 0.000 (0.0-0.012) X10*3/uL Nucleated RBC % (auto) 0.0 (0.0-0.2) /100WBC Sodium 142 (135-145) mmol/L Potassium 3.7 (3.3-5.1) mmol/L Chloride 110 H (96-108) mmol/L Carbon Dioxide 21 L (22-29) mmol/L Anion Gap 15 (12-20) BUN 11 (9-16) mg/dL Creatinine 0.79 (0.5-1.4) mg/dL Estim Creat Clear Calc 106.8 Estimated GFR > 60 Random Glucose 103 (60-115) mg/dL Calcium 8.7 D (8.4-10.2) mg/dL Total Bilirubin 0.6 (0.0-1.0) mg/dL AST 24 (5-31) U/L ALT 14 (0-31) U/L Alkaline Phosphatase 85 (39-117) U/L Total Protein 7.1 (6.5-8.0) g/dL Albumin 4.6 (3.5-5.0) g/dL Ethyl Alcohol 164 mg/dL Independent Historian Clinical information obtained from an independent historian. History obtained from or confirmed by: Other (Cousin and boyfriend) Discharge Plan Discharge Clinical Impression: Alcohol intoxication delirium without use disorder Instructions: Alcohol Intoxication (ED), At-Risk Alcohol Use (ED) Additional Instructions: When we check someone's blood for alcohol intoxication, the intoxicated level is 80. Your alcohol level was 164 which is 2 times the legal limit of intoxication Go home and sleep. You should increase the amount of fluid that you drink throughout the day to prevent dehydration. Take ibuprofen 200 mg pills, 2 pills every 6 hours as needed for pain or fever. Take Tylenol (acetaminophen) 500 mg pills, 2 pills every 6 hours as needed for pain or fever. Follow-up with your doctor in 2 days. Please return to the emergency department if your symptoms get worse or if you develop any symptoms that are concerning to you. Alcohol use disorder You were seen in the Emergency Department today for treatment of alcohol use disorder.? You may have been given medications to help with your withdrawal symptoms.? Please do not drink alcohol with them. This is very dangerous and can cause respiratory depression or other adverse reactions depending on the medication. If you would like to cut down or stop your alcohol use please consider calling our outpatient Addiction Treatment office:? [facility] ([id number] [id number]) [address] [place] [id number] You have also been given a list of treatment providers in the area that can assist as well.? If you experience seizures, vomiting blood, black stools, falls, severe headache, chest pain, fevers, trouble breathing, hallucinations or any other concerns you need to call 911 or seek immediate care. Please stay hydrated. Prescriptions: No Action hydroxyzine pamoate 50 mg capsule 1 cap PO TID PRN (Reason: Anxiety) cefuroxime axetil 250 mg tablet 250 mg PO Q12H 7 Days Qty: 14 0RF morphine 15 mg tablet 15 mg PO Q6H PRN (Reason: pain) Qty: 10 0RF Rx Instructions: Partial Fill upon patient request. ondansetron 4 mg tablet,disintegrating 4 mg PO Q6-8H PRN (Reason: nausea and vomiting) Qty: 14 0RF oxycodone 5 mg tablet 5 mg PO Q8H PRN (Reason: severe pain (scale score 7-10)) Qty: 6 0RF Rx Instructions: Partial Fill upon patient request. ibuprofen 400 mg tablet 400 mg PO Q6H PRN (Reason: pain) Qty: 20 0RF fluconazole 150 mg tablet 150 mg PO Q3D Qty: 2 0RF metronidazole 500 mg tablet 500 mg PO BID 7 Days Qty: 14 0RF Print Language: Chinese
[2025-09-27 03:21] LABS: Hematocrit 36.5 % (37.0-47.0); Hemoglobin 12.5 g/dl (12.0-16.0); Imm Gran Abs Auto 0.01 X10*3/uL (0.00-0.03); Imm Gran Pct Auto 0.2 % (0.0-0.4); Lymphocytes Absolute Auto 1.7 X10*3/uL (1.2-4.9); MANUAL DIFF FLAG NO; Mean Corpuscular HGB Conc 34.2 g/dl (31.0-35.0); Mean Corpuscular Hemoglobin 30.3 pg (27.0-33.0); Mean Corpuscular Volume 88.4 fL (80.0-98.0); NRBC Abs Auto 0.000 X10*3/uL (0.0-0.012); NRBC Pct Auto 0.0 /100WBC (0.0-0.2); Platelet Count 196 X10*3/uL (160-400); Red Blood Count 4.13 X10*6/uL (4.20-5.50); White Blood Count 5.0 X10*3/uL (4.8-10.8)
[2025-09-27 03:34] LABS: Alanine Aminotransferase 14 U/L (0-31); Albumin Level 4.6 g/dL (3.5-5.0); Alkaline Phosphatase 85 U/L (39-117); Anion Gap 15 (12-20); Aspartate Amino Transferase 24 U/L (5-31); Blood Urea Nitrogen 11 mg/dL (9-16); Calcium 8.7 mg/dL (8.4-10.2); Carbon Dioxide 21 mmol/L (22-29); Chloride 110 mmol/L (96-108); Creatinine Clr Calc Pharmacy 106.8; Estimated Glomerular Filt Rate > 60; Potassium 3.7 mmol/L (3.3-5.1); Sodium 142 mmol/L (135-145); Total Protein 7.1 g/dL (6.5-8.0)
[2025-09-27 04:00] VITALS: BP 105/41; PULSE 65; RESP 16; TEMP 37.2; O2SAT 98
[2025-09-27 06:00] VITALS: BP 91/43; PULSE 56; RESP 12; TEMP 36.8; O2SAT 97
[2025-09-27 06:33] VITALS: BP 106/63; PULSE 66; RESP 12; TEMP 36.8; O2SAT 97
== END 2025-09-27 06:34 | disposition home or self-care (01) ==
PROVIDERS: Physician Assistant; Emergency Provider Emergency Medicine Emergency Medical Services
DX: F10.121 Alcohol abuse with intoxication delirium (principal); Y90.6 Blood alcohol level of 120-199 mg/100 ml
CPT/HCPCS: 36415; 80053; 80307; 85025; 96361; 96374; 96375; 99284; J1885; J2405